=== PATIENT | female | born 1960 | race Caucasian/White ===

== ENCOUNTER 2022-10-22 12:58 | Emergency (ER) | payer OTHER ==
[~2022-10-22] VITALS: Ht 157.5 cm; Wt 81.6 kg
--- NOTE | 2022-10-22 13:10 | NUR ---
Dr. Abdi at bedside. MSE in progress.
[2022-10-22] MEDS ORDERED: LEVO125C4 PO (13:16)
[2022-10-22] MEDS ORDERED: ATOR40TA PO (13:16)
[2022-10-22] MEDS ORDERED: METF-442 PO (13:16)
[2022-10-22] MEDS ORDERED: PRAM1TAB3 PO (13:16)
[2022-10-22] MEDS ORDERED: AMLO10TA59 PO (13:16)
[2022-10-22] MEDS ORDERED: AMIT10TA6 PO (13:16)
[2022-10-22] MEDS ORDERED: GLIP10TA11 PO (13:17)
[2022-10-22] MEDS ORDERED: INSU3INS6 SUBCUT (13:17)
[2022-10-22] MEDS ORDERED: IV NORMAL SALINE 1000 ML BAG IV ONE (13:30)
[2022-10-22] MEDS ORDERED: METOCLOPRAMIDE HCL 10 MG/2 ML VIAL IV ONE (13:30)
[2022-10-22] MEDS ORDERED: METOCLOPRAMIDE HCL 10 MG/2 ML VIAL ONE (13:34)
[2022-10-22 13:47] LABS: MEAN CORPUSCULAR VOLUME 88.4 fL (75.5-95.3); PLATELET COUNT (AUTO) 408 K/uL (179-408)
[2022-10-22 13:50] LABS: *BILIRUBIN,URIN NEGATIVE (NEGATIVE); *BLOOD, URINE NEGATIVE (NEGATIVE); *CLARITY,URINE CLEAR (CLEAR); *COLOR,URINE YELLOW (YELLOW); *KETONES,URINE NEGATIVE (NEGATIVE); *UROBILINOGEN,URINE 0.2 E.U./dl (NORMAL); LEUKOCYTE ESTERASE ,URINE NEGATIVE (NEGATIVE); NITRITE, URINE NEGATIVE (NEGATIVE); UGLUCOSE NEGATIVE (NEGATIVE)
--- NOTE | 2022-10-22 13:51 | NUR ---
Patient going down for CT.
[2022-10-22 13:57] LABS: CREATININE 0.7 mg/dL (0.6-1.3); POTASSIUM 3.7 mmol/L (3.5-5.1)
--- NOTE | 2022-10-22 14:15 | NUR ---
Patient back from CT.
--- NOTE | 2022-10-22 14:30 | NUR ---
Patien back from CT.
--- NOTE | 2022-10-22 14:40 | NUR ---
Observed patient walking to and from the restroom.
[2022-10-22] MEDS ORDERED: OFLO5DRO5 EACH EAR (15:06)
[2022-10-22 15:13] VITALS: BP 135/70
== END 2022-10-22 15:30 | disposition home or self-care (01) ==
LOC: ER 13:02
DX: R50.9 Fever, unspecified (principal); R51.9 Headache, unspecified; D72.829 Elevated white blood cell count, unspecified; Z20.822 Contact with and (suspected) exposure to COVID-19; Z86.69 Personal history of other diseases of the nervous system and sense organs; E07.9 Disorder of thyroid, unspecified; E11.9 Type 2 diabetes mellitus without complications; E78.00 Pure hypercholesterolemia, unspecified; Z79.890 Hormone replacement therapy; Z79.84 Long term (current) use of oral hypoglycemic drugs; Z79.899 Other long term (current) drug therapy; I10 Essential (primary) hypertension
CPT/HCPCS: 99285; 70450; 96374; 96361; 87426; 87804 ×2; 80048; 81003; 85025; 87040 ×2; 36415; 83605; 70480; J2765; J7040; A4663

== ENCOUNTER → 2022-10-29 | Emergency (ER) | payer OTHER ==
[~2022-10-29] MED LIST: AMIT10TA6 PO; AMLO10TA59 PO; ATOR40TA PO; GLIP10TA11 PO; INSU3INS6 SUBCUT; LEVO125C4 PO; METF-442 PO; OFLO5DRO5 EACH EAR; PRAM1TAB3 PO
== END | disposition left against medical advice (07) ==
LOC: ER 18:05
DX: Z53.21 Procedure and treatment not carried out due to patient leaving prior to being seen by health care provider (principal)

== ENCOUNTER 2023-01-10 13:31 | Emergency (ER) | payer OTHER ==
[~2023-01-10] VITALS: Ht 157.5 cm; Wt 81.6 kg
[2023-01-10] MEDS ORDERED: FLUT16SP BNOSTRILS (14:20)
[2023-01-10] MEDS ORDERED: PANT40TA49 PO (14:20)
[2023-01-10] MEDS ORDERED: LOSA100T31 PO (14:20)
[2023-01-10] MEDS ORDERED: IV NORMAL SALINE 1000 ML BAG IV ONE (15:30)
[2023-01-10 15:45] LABS: HEMATOCRIT 38.2 % (31.2-41.9); MEAN CORPUSCULAR HEMOGLOBIN 29.2 uug (24.7-32.8); MEAN CORPUSCULAR VOLUME 88.6 fL (75.5-95.3); PLATELET COUNT (AUTO) 423 K/uL (179-408)
[2023-01-10 16:22] LABS: ALANINE AMINOTRANSFERASE 31 U/L (14-59); ALKALINE PHOSPHATASE 96 U/L (50-136); ASPARTATE AMINOTRANSFERASE 14 U/L (15-37); BILIRUBIN,DIRECT 0.1 mg/dL (0.0-0.2); BILIRUBIN,TOTAL 0.3 mg/dL (0.2-1.0); CARBON DIOXIDE 28 mmol/L (21-32); CHLORIDE 100 mmol/L (98-107); CREATININE 0.8 mg/dL (0.6-1.3); GLUCOSE 99 mg/dL (74-106); POTASSIUM 3.9 mmol/L (3.5-5.1); TOTAL PROTEIN, SERUM 8.7 g/dL (6.4-8.2); UREA NITROGEN, BLOOD 14 mg/dL (7-18)
[2023-01-10] MEDS ORDERED: IV NORMAL SALINE 250 ML IV ONE (16:31)
[2023-01-10] MEDS ORDERED: IOHEXOL 300MG/ML 100 ML INFUS..BTL ONE (16:31)
[2023-01-10] MEDS ORDERED: SWABABLE VALVE TRANSFER SET EA MC ONE (16:31)
[2023-01-10 16:50] LABS: LIPASE 115 U/L (73-393)
--- NOTE | 2023-01-10 18:02 | NUR ---
EKG done but no correct size EKG paper in the whole hospital. checked the EKG results in the machine monitor instead.
--- NOTE | 2023-01-10 18:16 | NUR ---
Patient wanted the IV line removed and patient wanted to wait in the ER waiting room. MD and insulation cupola charger notified. "OK to wait in the waiting room." per .
[2023-01-10 18:25] LABS: *BILIRUBIN,URIN NEGATIVE (NEGATIVE); *BLOOD, URINE NEGATIVE (NEGATIVE); *COLOR,URINE YELLOW (YELLOW); *KETONES,URINE NEGATIVE (NEGATIVE); *UROBILINOGEN,URINE 0.2 E.U./dl (NORMAL); LEUKOCYTE ESTERASE ,URINE TRACE (NEGATIVE); NITRITE, URINE NEGATIVE (NEGATIVE); UGLUCOSE NEGATIVE (NEGATIVE)
[2023-01-10 18:29] LABS: *CLARITY,URINE HAZY (CLEAR)
[2023-01-10 18:31] LABS: BACTERIA,URINE FEW /HPF (NONE SEEN); RBC,URINE 0-3 /HPF (0-3); SQUAMOUS EPITHELIAL CELL,UR FEW /HPF (NONE SEEN)
[2023-01-10] MEDS ORDERED: NITR100C6 PO (19:00)
--- NOTE | 2023-01-10 19:03 | NUR ---
Patient left ER before discharge papers were created by our ER doctor. No answer in ER waiting room or outside ER department. notified.
== END 2023-01-10 19:03 | disposition left against medical advice (07) ==
LOC: ER 13:31
DX: N39.0 Urinary tract infection, site not specified (principal); R07.89 Other chest pain; G43.909 Migraine, unspecified, not intractable, without status migrainosus; E78.00 Pure hypercholesterolemia, unspecified; E11.9 Type 2 diabetes mellitus without complications; E03.9 Hypothyroidism, unspecified; Z79.4 Long term (current) use of insulin; Z79.899 Other long term (current) drug therapy
CPT/HCPCS: 99285; 74177; 96360; 71045; 80076; 80048; 81001; 83690; 85025; 84484; 36415; 93005; Q9967; J7040; A4663